=== PATIENT | female | born 1995 | race Two or more races ===

== ENCOUNTER 2019-09-23 19:23 | Emergency (ER) | payer SELFPAY ==
[2019-09-23 19:58] VITALS: BP 124/62
--- NOTE | 2019-09-23 21:00 | ER Document Report ---
ED Medical Screen (RME) - General Chief Complaint: Vaginal Bleeding Stated Complaint: VAGINAL BLEEDING - 6 WEEKS Time Seen by Provider: 09/23/19 20:58 TRAVEL OUTSIDE OF THE [place] IN LAST 30 DAYS: No - HPI Notes: 09/23/19 20:59 Patient is a 24-year-old female G2, P1 approximate 6-week female who presents complaining of some lower pelvic pain and vaginal bleeding that began today. No other recent illness. No fever, chest pain, shortness of breath. I have treated and performed a rapid initial assessment of this patient. A comprehensive ED assessment and evaluation of the patient, analysis of test results and completion of medical decision making process will be conducted by additional ED providers. PHYSICAL EXAMINATION: GENERAL: Well-appearing, well-nourished and in no acute distress. A&Ox4. Answers questions appropriately. - Related Data Allergies/Adverse Reactions: No Known Allergies Allergy (Unverified 09/23/19 20:42) Home Medications: PER-NATALS Past Medical History - Social History Frequency of alcohol use: None Drug Abuse: None Physical Exam - Vital signs Vitals: Temp Pulse Resp BP Pulse Ox 98.5 F 65 20 124/62 100 09/23/19 19:41 09/23/19 19:41 09/23/19 19:41 09/23/19 19:41 09/23/19 19:41 Course - Vital Signs Vital signs: Temp Pulse Resp BP Pulse Ox 98.5 F 65 20 124/62 100 09/23/19 19:41 09/23/19 19:41 09/23/19 19:41 09/23/19 19:41 09/23/19 19:41
[2019-09-23 21:25] LABS: ABSOLUTE EOSINOPHILS # (AUTO) 0.1 10^3/uL (0.0-0.6); ABSOLUTE LYMPHOCYTES (AUTO) 2.9 10^3/uL (0.5-4.7); ABSOLUTE MONOCYTES (AUTO) 0.6 10^3/uL (0.1-1.4); ABSOLUTE NEUT (AUTO) 3.9 10^3/uL (1.7-8.2); BASOPHILS % (AUTO) 0.4 % (0-2); HEMATOCRIT 36.7 % (36.0-47.0); HEMOGLOBIN 12.7 g/dL (12.0-15.5); LYMPHOCYTES % (AUTO) 38.8 % (13-45); MEAN CORPUSCULAR HEMOGLOBIN 29.1 pg (27.0-33.4); MEAN CORPUSCULAR HGB CONC 34.6 g/dL (32.0-36.0); MEAN CORPUSCULAR VOLUME 84 fl (80-97); MONOCYTES % (AUTO) 8.1 % (3-13); PLATELET COUNT 256 10^3/uL (150-450); RED BLOOD COUNT 4.35 10^6/uL (3.72-5.28); RED CELL DISTRIBUTION WIDTH 15.4 % (11.5-14.0); SEGMENTED NEUTROPHILS % (AUTO) 51.7 % (42-78); TOTAL CELLS COUNTED % (AUTO) 100 %; WHITE BLOOD COUNT 7.5 10^3/uL (4.0-10.5)
[2019-09-23 21:45] LABS: ALBUMIN 4.6 g/dL (3.5-5.0); ALKALINE PHOSPHATASE 67 U/L (38-126); ANION GAP 9 (5-19); ASPARTATE AMINO TRANSFERASE 16 U/L (14-36); BILIRUBIN,TOTAL 0.3 mg/dL (0.2-1.3); BLOOD UREA NITROGEN 10 mg/dL (7-20); CALCIUM 9.7 mg/dL (8.4-10.2); CARBON DIOXIDE 27 mmol/L (22-30); CHLORIDE 102 mmol/L (98-107); GLUCOSE 80 mg/dL (75-110); POTASSIUM 3.9 mmol/L (3.6-5.0); TOTAL PROTEIN 7.6 g/dL (6.3-8.2)
[2019-09-23 21:47] LABS: APPEARANCE,URINE SLIGHTLY-CLOUDY; BILIRUBIN,URINE NEGATIVE (NEGATIVE); GLUCOSE, URINE NEGATIVE (NEGATIVE); KETONES,URINE NEGATIVE (NEGATIVE); PROTEIN,URINE 100 mg/dL (NEGATIVE); URINE SPECIFIC GRAVITY 1.012; UROBILINOGEN,URINE NEGATIVE mg/dL (<2.0)
[2019-09-23 21:49] LABS: COLOR,URINE PINK
--- NOTE | 2019-09-23 22:07 | RADIOLOGY REPORT (SQ) ---
EXAM DESCRIPTION: US TRANSVAGINAL COMPLETED DATE/TME: 09/23/2019 20:59 CLINICAL HISTORY: 24 years, Female, approximately 6wks, bleeding COMPARISON: None. TECHNIQUE: LIMITATIONS: None. FINDINGS: No IUP. There is some complex material in the lower uterine segment, likely blood. There is a minimal amount of free fluid. The ovaries are unremarkable. Blood flow was demonstrated in both ovaries with Doppler. No adnexal mass. IMPRESSION: Likely blood in the lower uterine segment. No IUP. Possibilities are very early IUP, spontaneous and ectopic . Correlation and follow-up are needed. copyright 2010 [employer]- All Rights Reserved
== END 2019-09-24 01:03 | disposition left against medical advice (07) ==
LOC: ER 19:23
DX: O46.90 Antepartum hemorrhage, unspecified, unspecified trimester (principal); O26.899 Other specified pregnancy related conditions, unspecified trimester; R10.2 Pelvic and perineal pain; Z3A.00 Weeks of gestation of pregnancy not specified; Z79.899 Other long term (current) drug therapy; Z53.20 Procedure and treatment not carried out because of patient's decision for unspecified reasons
CPT/HCPCS: 36415; 76817; 80053; 81001; 84702; 85025; 86900; 86901; 93976; 99281